=== PATIENT | male | born 1975 | race Asian ===

== ENCOUNTER 2018-04-09 00:18 | Inpatient (IN) | payer OTHER ==
[~2018-04-09] VITALS: Ht 170.2 cm; Wt 65.5 kg
[2018-04-09] VITALS (11 sets, daily range): BP systolic 108–130; BP diastolic 62–80; PULSE 54–62; RESP 16–20; Ht 170.2 cm; Wt 65.5 kg
[2018-04-09] MEDS ORDERED: NACL 0.9% 3 ML SYG IV SCH (06:00)
[2018-04-09] MEDS ORDERED: ONDANSETRON 4 MG INJ IV PRN (06:00)
[2018-04-09] MEDS ORDERED: ACETAMINOPHEN 325 MG TAB PO PRN (06:00)
[2018-04-09] MEDS ORDERED: ALBUTEROL/IPRATROPIUM (NEB) 3 ML AMP HHN PRN (06:00)
--- NOTE | 2018-04-09 08:32 | HP ---
Date/Time of Note Date/Time of Note DATE: 04/09/18 TIME: 08:29 Assessment/Plan VTE Prophylaxis Pharmacological prophylaxis: heparin Lines/Catheters IV C[facility]from [facility] Saline Lock Assessment/Plan Assessment/Plan 43-year-old with a history of vertigo-like symptoms transferred from outside hospital for left upper extremity weakness/numbness. We will rule out stroke PLAN Head CT and angios negative at outside facility -MRI of the brain, carotid Doppler ultrasound and 2D echo Aspirin and statin Patient is completely symptom-free without any focal deficits. Will order PT eval if needed Result Diagram: 04/09/1861204/09/18612 Results 24hrs Laboratory Tests Test 04/09/18 06:13 White Blood Count 10.4 Red Blood Count 5.50 Hemoglobin 15.9 Hematocrit 47.7 Mean Corpuscular Volume 86.7 Mean Corpuscular Hemoglobin 28.9 L Mean Corpuscular Hemoglobin Concent 33.3 Red Cell Distribution Width 12.5 Platelet Count 213 Mean Platelet Volume 10.0 Immature Granulocytes % 0.200 Neutrophils % 64.1 Lymphocytes % 26.8 Monocytes % 6.6 Eosinophils % 1.7 Basophils % 0.6 Nucleated Red Blood Cells % 0.0 Immature Granulocytes # 0.020 Neutrophils # 6.7 Lymphocytes # 2.8 Monocytes # 0.7 Eosinophils # 0.2 Basophils # 0.1 Nucleated Red Blood Cells # 0.0 Prothrombin Time 12.3 Prothrombin Time Ratio 1.0 INR International Normalized Ratio 0.90 Activated Partial Thromboplast Time 31.6 Sodium Level 145 H Potassium Level 3.8 Chloride Level 105 Carbon Dioxide Level 30 Anion Gap 10 Blood Urea Nitrogen 9 Creatinine 0.92 Est Glomerular Filtrat Rate mL/min > 60 Glucose Level 103 Hemoglobin A1c 5.6 Calcium Level 9.6 Magnesium Level 2.3 Total Bilirubin 0.6 Direct Bilirubin 0.00 Indirect Bilirubin 0.6 Aspartate Amino Transf (AST/SGOT) 29 Alanine Aminotransferase (ALT/SGPT) 31 Alkaline Phosphatase 70 Total Protein 7.7 Albumin 4.6 Globulin 3.10 Albumin/Globulin Ratio 1.48 Triglycerides Level 89 Cholesterol Level 193 LDL Cholesterol, Calculated 135 HDL Cholesterol 40 Cholesterol/HDL Ratio 4.8 Thyroid Stimulating Hormone (TSH) Pending HPI/ROS Admit Date/Time Admit Date/Time Apr 09, 2018 at 01:55 Hx of Present Illness This is a 43-year-old male with no significant past medical history who i nitially presented on outside hospital complaining of left arm weakness/tingling sensation on his fingers. He does report history of vertigo-like symptoms in the past. Denied slurred speech, facial droop, focal weakness. The right side facility head CT and angios negative for acute findings. Patient symptom has completely resolved and is asking to get the MRI done as soon as possible so that he can go home. PMH/Family/Social Past Medical History Medications Current Medications IV Flush (NS 3 ml) 3 ml PER PROTOCOL IV ; Start 04/09/18 at 06:00 Ondansetron HCl (Zofran Inj) 4 mg Q6H PRN IV NAUSEA/VOMITING; Start 04/09/18 at 06:00 Aspirin (Aspirin) 81 mg DAILY PO ; Start 04/09/18 at 09:00 Acetaminophen (Tylenol Tab) 650 mg Q6H PRN PO .PAIN 1-3 OR TEMP; Start 04/09/18 at 06:00 Heparin Sodium (Porcine) (Heparin (5000 Units/1ml)) 5,000 unit Q12 SC ; Start 04/09/18 at 09:00 Albuterol/ Ipratropium (Duoneb) 3 ml Q2H RESP THERAPY PRN HHN SHORTNESS OF BREATH; Start 04/09/18 at 06:00 Atorvastatin Calcium (Lipitor) 40 mg HS PO ; Start 04/09/18 at 21:00 Coded Allergies: No Known Drug Allergies (Verified Allergy, Unknown, 04/09/18) Social History Smoking Status: Current every day smoker Exam/Review of Systems Vital Signs Vitals Vital Signs Date Temp Pulse Resp B/P (MAP) Pulse Ox O2 O2 Flow FiO2 Time Delivery Rate 04/09/18 58 08:00 04/09/18 98.1 20 130/80 97 Room Air 07:17 (97) Intake and Output 04/08/18 04/08/18 04/09/18 1515:00 23:00 07:00 IntakeIntake Total 500 ml OutputOutput Total 400 ml BalanceBalance 100 ml Exam Exam Past Medical History: see hpi Past Surgical History Past Surgical Hx: other (see hpi) Family History Significant Family History: no pertinent family hx Social History Alcohol Use: other Smoking Status: Unknown if ever smoked Drug Use: other Medications Exam Eyes: PERRL ENMT: mucosa pink and moist Respiratory: normal air movement Cardiovascular: nl pulses Gastrointestinal: soft Extremities: normal pulses JAVIER KING MD Apr 09, 2018 08:32
[2018-04-09] MEDS: ASPIRIN 81 MG TAB PO SCH (09:10)
[2018-04-09] MEDS: HEPARIN 5,000 UNIT/1 ML VIAL SC SCH ×2 (09:15→20:19)
--- NOTE | 2018-04-09 17:10 | PN ---
Date/Time of Note Date/Time of Note DATE: 04/09/18 TIME: 17:09 Assessment/Plan VTE Prophylaxis Risk score (from Ns)>0 risk: 1 SCD applied (from Ns): Yes SCD contraindicated: low risk/ambulating Pharmacological prophylaxis: NA/contraindicated Pharm contraindication: low risk/ambulating Lines/Catheters [facility] Saline Lock Assessment/Plan Hospital Course Assessment and plan 1. Left-sided deficits with vertigo. Rule out TIA stroke. Stable check MRI/carotid/echo. 2. Tobacco abuse status post counseling offered patch 3. Hypertension? 4. History of coining Subjective: Speech or vision. Objective: Sinus rhythm vital signs stable Physical exam No pallor icterus adenopathy carotid bruits JVD droop Regular no murmur gallop Clear Benign No edema Neuro: Grossly nonfocal. Finger to nose test might be a bit easier on the right but this may be related to the IV on the left arm. Result Diagram: 04/09/18 0613 04/09/18 0613 Results 24hrs Laboratory Tests Test 04/09/18 06:13 White Blood Count 10.4 Red Blood Count 5.50 Hemoglobin 15.9 Hematocrit 47.7 Mean Corpuscular Volume 86.7 Mean Corpuscular Hemoglobin 28.9 L Mean Corpuscular Hemoglobin Concent 33.3 Red Cell Distribution Width 12.5 Platelet Count 213 Mean Platelet Volume 10.0 Immature Granulocytes % 0.200 Neutrophils % 64.1 Lymphocytes % 26.8 Monocytes % 6.6 Eosinophils % 1.7 Basophils % 0.6 Nucleated Red Blood Cells % 0.0 Immature Granulocytes # 0.020 Neutrophils # 6.7 Lymphocytes # 2.8 Monocytes # 0.7 Eosinophils # 0.2 Basophils # 0.1 Nucleated Red Blood Cells # 0.0 Prothrombin Time 12.3 Prothrombin Time Ratio 1.0 INR International Normalized Ratio 0.90 Activated Partial Thromboplast Time 31.6 Sodium Level 145 H Potassium Level 3.8 Chloride Level 105 Carbon Dioxide Level 30 Anion Gap 10 Blood Urea Nitrogen 9 Creatinine 0.92 Est Glomerular Filtrat Rate mL/min > 60 Glucose Level 103 Hemoglobin A1c 5.6 Calcium Level 9.6 Magnesium Level 2.3 Total Bilirubin 0.6 Direct Bilirubin 0.00 Indirect Bilirubin 0.6 Aspartate Amino Transf (AST/SGOT) 29 Alanine Aminotransferase (ALT/SGPT) 31 Alkaline Phosphatase 70 Total Protein 7.7 Albumin 4.6 Globulin 3.10 Albumin/Globulin Ratio 1.48 Triglycerides Level 89 Cholesterol Level 193 LDL Cholesterol, Calculated 135 HDL Cholesterol 40 Cholesterol/HDL Ratio 4.8 Thyroid Stimulating Hormone (TSH) 2.530 Exam/Review of Systems Exam Vitals Vital Signs Date Temp Pulse Resp B/P (MAP) Pulse Ox O2 O2 Flow FiO2 Time Delivery Rate 04/09/18 57 16:00 04/09/18 97.9 20 114/69 97 Room Air 15:43 (84) Intake and Output 04/08/18 04/08/18 04/09/18 1414:59 22:59 06:59 IntakeIntake Total 500 ml OutputOutput Total 400 ml BalanceBalance 100 ml Results Results 24hrs Laboratory Tests Test 04/09/18 06:13 White Blood Count 10.4 Red Blood Count 5.50 Hemoglobin 15.9 Hematocrit 47.7 Mean Corpuscular Volume 86.7 Mean Corpuscular Hemoglobin 28.9 L Mean Corpuscular Hemoglobin Concent 33.3 Red Cell Distribution Width 12.5 Platelet Count 213 Mean Platelet Volume 10.0 Immature Granulocytes % 0.200 Neutrophils % 64.1 Lymphocytes % 26.8 Monocytes % 6.6 Eosinophils % 1.7 Basophils % 0.6 Nucleated Red Blood Cells % 0.0 Immature Granulocytes # 0.020 Neutrophils # 6.7 Lymphocytes # 2.8 Monocytes # 0.7 Eosinophils # 0.2 Basophils # 0.1 Nucleated Red Blood Cells # 0.0 Prothrombin Time 12.3 Prothrombin Time Ratio 1.0 INR International Normalized Ratio 0.90 Activated Partial Thromboplast Time 31.6 Sodium Level 145 H Potassium Level 3.8 Chloride Level 105 Carbon Dioxide Level 30 Anion Gap 10 Blood Urea Nitrogen 9 Creatinine 0.92 Est Glomerular Filtrat Rate mL/min > 60 Glucose Level 103 Hemoglobin A1c 5.6 Calcium Level 9.6 Magnesium Level 2.3 Total Bilirubin 0.6 Direct Bilirubin 0.00 Indirect Bilirubin 0.6 Aspartate Amino Transf (AST/SGOT) 29 Alanine Aminotransferase (ALT/SGPT) 31 Alkaline Phosphatase 70 Total Protein 7.7 Albumin 4.6 Globulin 3.10 Albumin/Globulin Ratio 1.48 Triglycerides Level 89 Cholesterol Level 193 LDL Cholesterol, Calculated 135 HDL Cholesterol 40 Cholesterol/HDL Ratio 4.8 Thyroid Stimulating Hormone (TSH) 2.530 Medications Medication Current Medications IV Flush (NS 3 ml) 3 ml PER PROTOCOL IV ; Start 04/09/18 at 06:00 Ondansetron HCl (Zofran Inj) 4 mg Q6H PRN IV NAUSEA/VOMITING; Start 04/09/18 at 06:00 Aspirin (Aspirin) 81 mg DAILY PO Last administered on 04/09/18at 09:10; Admin Dose 81 MG; Start 04/09/18 at 09:00 Acetaminophen (Tylenol Tab) 650 mg Q6H PRN PO .PAIN 1-3 OR TEMP; Start 04/09/18 at 06:00 Heparin Sodium (Porcine) (Heparin (5000 Units/1ml)) 5,000 unit Q12 SC Last administered on 04/09/18at 09:15; Admin Dose 5,000 UNIT; Start 04/09/18 at 09:00 Albuterol/ Ipratropium (Duoneb) 3 ml Q2H RESP THERAPY PRN HHN SHORTNESS OF BREATH; Start 04/09/18 at 06:00 Atorvastatin Calcium (Lipitor) 40 mg HS PO ; Start 04/09/18 at 21:00 CHULA RODRIGUEZ MD Apr 09, 2018 17:10
[2018-04-09] MEDS: NICOTINE (14 MG/24 HR) PATCH TRANSDERM SCH (18:00)
[2018-04-09] MEDS ORDERED: ATORVASTATIN 40 MG TAB PO SCH (21:00)
[2018-04-10] VITALS (9 sets, daily range): BP systolic 104–124; BP diastolic 66–87; PULSE 55–72; RESP 17–18
[2018-04-10] MEDS: ASPIRIN 81 MG TAB PO SCH (08:48)
[2018-04-10] MEDS: NICOTINE (14 MG/24 HR) PATCH TRANSDERM SCH (08:48)
[2018-04-10] MEDS: HEPARIN 5,000 UNIT/1 ML VIAL SC SCH (08:57)
--- NOTE | 2018-04-10 14:13 | DS ---
Date/Time of Note Date/Time of Note DATE: 04/10/18 TIME: 14:08 Discharge Summary Admission/Discharge Info Admit Date/Time Apr 09, 2018 at 01:55 Discharge Date/Time Patient Condition: Good Procedures Labs: Total cholesterol 188. LDL 130, not quite at goal Chest x-ray: No acute process Carotid ultrasound: No acute process MRI brain IMPRESSION: Normal noncontrast MRI of the brain. No acute intracranial abnormality seen. 2D Echo: [phone] Hx of Present Illness 43-year-old gentleman admitted with left-sided deficits. ER CAT scan Chun was unremarkable. Transferred for continuity Hospital Course Hospitalist coverage/hospital course Concern for stroke/TIA. MRI negative. Will treat TIA. Advised to quit smoking. Carotids MRI unremarkable. No arrhythmias on monitor. LDL a little high. Started risk factor modification including low-salt low-cholesterol diet. Started ASA. Stable and fit for discharge. I asked patient to visit/establish himself with a primary care in the next 1-2 weeks. And to request records from here. Follow-up on 2D echo results. Assessment and plan 1. Left-sided deficits with vertigo. Stable treat stroke. . 2. Tobacco abuse status post counseling offered patch 3. Hypertension? Blood pressure presently stable on low-salt diet. 4. History of coining Primary Care Provider [facility] Time spent on discharge: > 30 minutes Pending Labs Laboratory Tests Test 04/10/18 05:38 White Blood Count 8.3 10^3/ul (4.8-10.8) Red Blood Count 5.34 10^6/ul (4.70-6.10) Hemoglobin 15.5 g/dl (14.0-18.0) Hematocrit 46.7 % (42.0-52.0) Mean Corpuscular Volume 87.5 fl (82.0-101.0) Mean Corpuscular Hemoglobin 29.0 pg (29.0-33.0) Mean Corpuscular Hemoglobin Concent 33.2 g/dl (32.0-37.0) Red Cell Distribution Width 12.6 % (11.5-14.5) Platelet Count 190 10^3/UL (140-415) Mean Platelet Volume 10.4 fl (7.4-10.4) Immature Granulocytes % 0.200 % (0.001-0.429) Neutrophils % 56.5 % (39.0-77.0) Lymphocytes % 31.2 % (15.0-51.0) Monocytes % 8.5 % (0.0-11.0) Eosinophils % 3.0 % (0.0-7.0) Basophils % 0.6 % (0.0-2.0) Nucleated Red Blood Cells % 0.0 /100WBC (0.0-0.0) Immature Granulocytes # 0.020 10^3/ul (0.0-0.031) Neutrophils # 4.7 10^3/ul (1.6-7.5) Lymphocytes # 2.6 10^3/ul (0.8-2.9) Monocytes # 0.7 10^3/ul (0.3-0.9) Eosinophils # 0.3 10^3/ul (0.0-0.5) Basophils # 0.1 10^3/ul (0.0-0.1) Nucleated Red Blood Cells # 0.0 10^3/ul (0.0-0.0) Sodium Level 142 mmol/L (135-144) Potassium Level 3.8 mmol/L (3.5-5.1) Chloride Level 101 mmol/L (97-110) Carbon Dioxide Level 30 mmol/L (21-31) Anion Gap 11 (5-13) Blood Urea Nitrogen 17 mg/dl (7-20) Creatinine 0.98 mg/dl (0.61-1.24) Est Glomerular Filtrat Rate mL/min > 60 mL/min (>60) Glucose Level 81 mg/dl (70-220) Calcium Level 9.0 mg/dl (8.4-10.2) Phosphorus Level 4.0 mg/dl (2.5-4.9) Magnesium Level 2.3 mg/dl (1.7-2.5) Vitamin B12 Level 432 pg/ml (239-931) Folate 5.9 ng/ml (2.8-20.0) CHULA RODRIGUEZ MD Apr 10, 2018 14:13
--- NOTE | 2018-04-10 14:14 | PDOCDIS ---
Discharge Instructions CONDITION [id number] Patient Condition: [id number] Stable HOME CARE INSTRUCTIONS: [id number] Diet Instructions: [id number] Low Fat /Cholesterol ACTIVITY: [id number] Activity Restrictions: [id number] Slowly Increase Activity Do not Drive (for 1wk) FOLLOW UP/APPOINTMENTS Follow-up Plan Must find a doctor/ Visit in 1-2 weeks. Ask your doctor to call medical records [phone] to request your discharge summary and 2D echo cardiac report. CHULA RODRIGUEZ MD Apr 10, 2018 14:14
[2018-04-10] MEDS ORDERED: ASPI-831 PO (14:15)
[2018-04-10] MEDS ORDERED: Nicotine (14 Mg/24 Hr) TRANSDERM (14:15)
[2018-04-10] MEDS ORDERED: ATOR40TA68 PO (14:18)
--- NOTE | 2018-04-11 14:19 | RADRPT ---
Echocardiogram Report Patient Name: DIONY ARTPatient ID: [id number] : 1975 (43y 3m)Study Date: 04/09/2018 8:43:36 AM Gender: MAccession #: [id number] [place]: [facility] [place]: Ref.Physician: JAVIER KING Height(Cm): 170 BSA: 1.76Weight(Kg): 65.3 Quality: GoodAccount #: Procedures: Echocardiographic Report: Transthoracic echocardiogram with complete 2D, M-Mode, and doppler examination. Indications: Transient Ischemic Attack. Measurements: 2D/M Mode Doppler Measurement Value Normal Range Measurement Value Normal Range LVIDd 2D 4.2 [ 4.2 - 5.8 ] cm AV Peak Harvey 1.3 [ 100.0 - 170.0 ] cm/se c LVIDs 2D 2.3 [ 2.5 - 4.0 ] cm AV Peak PG 7.0 [ 2.0 - 9.0 ] mmHg LVPWd 2D 1.0 [ 0.6 - 1.0 ] cm LVOT Peak Harvey 0.9 [ 70.0 - 110.0 ] cm/sec IVSd 2D 1.1 [ 0.6 - 1.0 ] cm LVOT Peak PG 3.0 [ 2.0 - 6.0 ] mmHg AoR Diam 2D 3.5 [ 2.6 - 3.4 ] cm MV E Peak Harvey 0.6 [ 60.0 - 130.0 ] cm/sec EF 2D 76.2 [ 52.0 - 72.0 ] percent MV A Peak Harvey 0.4 [ 100.0 - 120.0 ] cm/se c LA Dimen 2D 3.4 [ 3.0 - 4.0 ] cm MV E/A 1.4 [ 0.8 - 1.5 ] ratio MV PHT 72.0 [ 20.0 - 100.0 ] msec MV Decel Time 246 [ 104 - 258 ] msec MV Decel [place] 3 Lat E` Harvey 0.2 [ 10.0 - 15.0 ] cm/sec Lateral E/E` 3.7 [ 1.0 - 2.0 ] ratio Med E` Harvey 0.1 cm/sec MV E/A 1.4 [ 0.8 - 1.5 ] ratio MVA PHT 3.1 [ 2.0 - 4.0 ] cm2 TR Peak Harvey 1.6 [ 100.0 - 280.0 ] cm/se c TR Peak PG 10.0 mmHg PV Peak Harvey 1.0 [ 40.0 - 80.0 ] cm/sec PV Peak PG 4.0 mmHg RVSP 13.0 [ 10.0 - 36.0 ] mmHg RA Pressure 3.0 mmHg Findings: Left Ventricle: Normal left ventricular systolic function. Normal left ventricular cavity size. Normal left ventricular wall thickness. Ejection fraction is visually estimated at 55-60 %. Tissue Doppler/Mitral Doppler indices are within normal limits. E'= 4 cm/s. Right Ventricle: Normal right ventricular size. Normal right ventricular systolic function. Left Atrium: The left atrium is normal in size. Right Atrium: The right atrium is normal in size. Atrial Septum: Normal atrial septum. Mitral Valve: Normal appearance of the mitral valve. Mild mitral valve regurgitation. Aortic Valve: No significant aortic stenosis or insufficiency. Normal trileaflet aortic valve structure. No hemodynamically significant aortic stenosis by doppler. No aortic regurgitation. Tricuspid Valve: Normal appearance of the tricuspid valve. There is trace tricuspid regurgitation. Pulmonic Valve: Normal pulmonic valve appearance. There is mild pulmonic regurgitation. Pericardium: Normal pericardium with no significant pericardial effusion. Aorta: Normal aortic root. IVC: Normal size and normal respiratory collapse consistent with normal right atrial pressure. Pulmonary Artery: Normal pulmonary artery size. Conclusions: Normal left ventricular systolic function. Normal left ventricular cavity size. Normal left ventricular wall thickness. Ejection fraction is visually estimated at 55-60 %. Tissue Doppler/Mitral Doppler indices are within normal limits. E'= 4 cm/s. Normal appearance of the mitral valve. Mild mitral valve regurgitation. n. Normal pulmonic valve appearance. There is mild pulmonic regurgitation. n. Normal appearance of the tricuspid valve. There is trace tricuspid regurgitation. Electronically Signed By: Ramses Urrutia 2018-04-11 14:18:38 PST
== END 2018-04-10 17:50 | disposition home or self-care (01) | DRG 69 ==
LOC: TEL 01:55
PROVIDERS: ADMIT Internal Medicine; ATTEND Internal Medicine
DX: G45.9 Transient cerebral ischemic attack, unspecified (principal); F17.210 Nicotine dependence, cigarettes, uncomplicated; I10 Essential (primary) hypertension; R53.1 Weakness; R20.0 Anesthesia of skin; Z79.82 Long term (current) use of aspirin
CPT/HCPCS: 70551; 80048; 80053; 80061; 82607; 82746; 83036; 83735; 84100; 84443; 85025; 85610; 85730; 86592; 93306; 93880; 97161; J1644